=== PATIENT | female | born 1960 | race Caucasian/White ===

== ENCOUNTER 2024-04-02 14:32 | Emergency (ER) | payer BC ==
--- OUTSIDE RECORDS SUMMARY | 2024-04-02 14:35 | XMS REPORT | Continuity of Care Document ---
Author Name Unknown Address [address] [facility] [address] [place] [address] [facility] thconnect Address [address] [facility] [address] [place] [address] Care Team Providers Care Principal Software Engineer Name Role Phone Edilma Landeros Primary Care Physician [phone] Stepan Martinez Attending Clinician Unavailable Sb Lucas Attending Clinician SB MONTOYA Attending Clinician UnavailAngélica Ye MD Attending Clinician [phone] Edilma Landeros Attending Clinician Unavailelvira e Stepan Martinez Admitting Clinician Unavailable Physician, No Primary or Family Admitting Clinic bryan Unavailable Payers Payer Name Policy Type Policy Number Effective Date Expirati on Date Source Problems Condition Name Condition Details Condition Category Status Onset Date Resolution Date Last Treatment Date Treating Clinician Comments Source No known active problems No known active problems Disease [facility] Allergies, Adverse Reactions, Alerts Allergy Name Allergy Type Status Severity Reaction(s) Onset Date Inactive Date Treating Clinician Comments Source hydrocod one DA Active U RASH 2023-02 00:00: 00 [facility] Hydrocod one Allergy to substanc e Active Swelling 1992-02 00:00: 00 Other reaction( s): Unknown [facility] Hydrocod one Drug Allergy Active Swelling 1992-02 00:00: 00 Other reaction( s): Unknown [facility] HYDROCOD ONE DRUG INGREDI Active Low Dizziness 1992-02 00:00: 00 [facility] NO KNOWN ALLERGIE S Drug Class Active [facility] Social History Social Habit Start Date Stop Date Quantity Comments Source Exposure to SARS-CoV-2 (event) Not sure [facility] Tobacco use and exposure 2021-03-17 00:00:00 2021-03-17 00:00:00 Never used [facility] Alcohol intake 2021-02-03 00:00:00 2021-02-03 00:00:00 .14 /d [facility] Sex Assigned At 1960 00:00:00 1960 00:00:00 [facility] Smoking Status Start Date Stop Date Source Never smoker [facility] Medications Ordered Medication Name Filled Medication Name Start Date Stop Date Current Medication? Ordering Clinician Indication Dosage Frequency Signature (SIG) Comments Components Source cetirizine 10 mg tablet 03-17 13:07: 59 Yes 10mg Take 10 mg by mouth. [facility] methylPREDN ISolone (MEDROL, STEVEN,) 4 mg tablets 03-17 00:00: 00 Yes [id number] Take by mouth SEE-INSTRU CTIONS. follow package directions [facility] montelukast 10 mg tablet 03-04 00:00: 00 Yes 10mg Take 10 mg by mouth daily. [facility] azelastine 137 mcg (0.1 %) nasal spray 2020-02 00:00: 00 Yes USE 2 SPRAYS IN EACH NOSTRIL TWICE DAILY [facility] omeprazole 40 mg capsule 2020-02 00:00: 00 Yes TAKE 1 CAPSULE BY MOUTH EVERY DAY BEFORE BREAKFAST [facility] cholestyram ine 4 gram powder 2020-02 00:00: 00 02-08 05:59 :00 No 4g Take 4 g by mouth. [facility] hydroCHLORO thiazide 25 mg tablet 2020-02 00:00: 00 Yes [facility] cetirizine (ZyrTEC) 10 MG tablet 2020-02 08:54: 59 Yes 10mg QD Take 10 mg by mouth 1 (one) time each day. [facility] azelastine (Optivar) 0.05 % ophthalmic solution 2020-02 08:54: 39 Yes [facility] Montelukast Sodium (SINGULAIR PO) 2020-02 08:54: 39 Yes [facility] traZODone 50 mg tablet 2020-02 00:00: 00 Yes 100mg Take 100 mg by mouth. [facility] busPIRone 10 mg tablet 2020-02 00:00: 00 Yes 10mg Take 10 mg by mouth daily. [facility] omeprazole (PriLOSEC) [address] capsule 05-28 00:00: 00 Yes 1 (one) time each day at the same time. [facility] triamterene -hydrochlor othiazide (Maxzide-25 ) 37.5-25 MG tablet 09-27 00:00: 00 Yes 1 (one) time each day at the same time. [facility] Vital Signs Vital Name Observation Time Observation Value Comments S ource Systolic blood pressure 2021-03-17 19:09:00 136 mm[Hg] [facility] Diastolic blood pressure 2021-03-17 19:09:00 67 mm[Hg] [facility] Heart rate 2021-03-17 19:09:00 55 /min [facility] Body temperature 2021-03-17 19:09:00 36.89 Meghna [facility] Respiratory rate 2021-03-17 19:09:00 18 /min [facility] Body height 2021-03-17 19:09:00 166.4 cm [facility] Body weight 2021-03-17 19:09:00 110.814 kg [facility] BMI 2021-03-17 19:09:00 40.04 kg/m2 [facility] Oxygen saturation in Arterial blood by Pulse oximetry 2021-03-17 19:09:00 97 /min [facility] Systolic blood pressure 2021-02-03 15:00:00 162 mm[Hg] [facility] Diastolic blood pressure 2021-02-03 15:00:00 81 mm[Hg] [facility] Heart rate 2021-02-03 15:00:00 65 /min [facility] Body temperature 2021-02-03 15:00:00 36.61 Meghna [facility] Body height 2021-02-03 15:00:00 165.1 cm [facility] Body weight 2021-02-03 15:00:00 99.791 [facility] BMI 2021-02-03 15:00:00 36.61 kg/m2 [facility] En[facility]ters Start Date/Time End Date/Time Encounter Type Admission Type Attending [facility] Care Facility Care Department Encounter ID Source 2024-02-03 07:01:00 2024-02-04 10:46:00 Inpatient Stepan Burciaga HCAPM INTE.02 [id number] [facility] 2021-03-17 13:00:00 2021-03-17 13:20:00 Urgent Care Sb Montoya [facility] [id number] [facility] 2021-03-17 13:00:00 2021-03-17 13:00:00 Outpatient SB [facility] [id number] [facility] 2021-02-03 09:00:00 2021-02-03 09:56:33 Office Visit Angélica Sullivan [facility] 2 [id number] [facility] 2020-01-29 12:00:00 2020-01-29 12:00:00 Outpatient Edilma Vasquez [facility] [id number] 2020-01-11 12:00:00 2020-01-11 12:00:00 Outpatient Edilma Vasquez [facility] [id number] [facility] Results Test Description Test Time Test Comments Results Result Co mments Source CBC W/AUTO [id number] 03:46:00* Test Item Value Reference Range Interpretation Comme nts WHITE BLOOD CELL (test code = WBC) 6.2 K/mm3 3.5-11.0 N RED BLOOD CELL (test code = RBC) 3.97 M/mm3 4.70-6.10 L HEMOGLOBIN (test code = HGB) 12.1 G/DL 10.4-14.9 N HEMATOCRIT (test code = HCT) 36.9 % 31.5-44.1 N MEAN CELL VOLUME (test code = MCV) 92.9 Fl 84.5-98.6 N MEAN CELL HGB (test code = MCH) 30.5 pg 27.0-34.2 N MEAN CELL HGB CONCETRATION (test code = MCHC) 32.8 G/DL 31.5-34.0 N RED CELL DISTRIBUTION WIDTH (test code = RDW) 12.6 SD 11.5-14.5 N PLATELET COUNT (test code = PLT) 238 K/mm3 150-450 N MEAN PLATELET VOLUME (test c ode = MPV) 9.80 fL 7.0-10.5 N NEUTROPHIL % (test code = NT%) 58.6 % 40-76 N IMMATURE GRANULOCYTE % (test code = IG%) 0.2 % 0.0-5.0 N LYMPHOCYTE % (test code = LY%) 33.9 % 20.5-51.1 N MONOCYTE % (test code = MO%) 6.6 % 1.7-9.3 N EOSINOPHIL % (test code = EO%) 0.5 % 0.0-6.0 N BASOPHIL % (test code = BA%) 0.2 % 0.0-2.0 N NUCLEATED RBC % (test code = NRBC%) 0.0 /100WBC% 0.0-1.0 N NEUTROPHIL # (test code = NT#) 3.6 K/mm3 1.8-7.6 N IMMATURE GRANULOCYTE # (test code = IG#) 0.01 x10 3/uL 0.00-0.03 N LYMPHOCYTE # (test code = LY#) 2.1 K/mm3 0.6-3.2 N MONOCYTE # (test code = MO#) 0.4 K/mm3 0.3-1.1 N EOSINOPHIL # (test code = EO#) 0.0 K/mm3 0.0-0.4 N BASOPHIL # (test code = BA#) 0.0 K/mm3 0.0-0.1 N NUCLEATED RBC # (test code = NRBC#) 0.0 K/mm3 0.0-0.1 N [id number] 08:15:00* Test Item Value Reference Range Interpretation Comme nts MAGNESIUM (test code = MAG) 1.9 MG/DL 1.8-2.4 N COMPREHENSIVE METABOLIC [id number] 08:15:00* Test Item Value Reference Range Interpretation Comme nts SODIUM (test code = NA) 142 mmol/L 136-145 N POTASSIUM (test code = K) 4.0 mmol/L 3.4-5.0 N CHLORIDE (test code = CL) 105 mmol/L 98-107 N CARBON DIOXIDE (test code = CO2) 28 mmol/L 21-32 N ANION GAP (test code = GAP) 9 GAP calc 4-15 N GLUCOSE (test code = GLU) 84 MG/DL 70-110 N BLOOD UREA NITROGEN (test code = BUN) 14 MG/DL 7-18 N GLOMERULAR FILTRATION RATE (test code = GFR) >=60 max estimate estGFR >60 The Glomerular Filtration Rate is a calculated parameterbased on serum Creatinine, patient age and sex. GFR valuesless than 60 mL/min/1.73 square meters are indicative ofChronic Kidney Disease. Values less than 15 mL/min/1.73square meters indicate Kidney failure. The calculation forGFR is based on the CKD-EPI (2020) calculation. This formulais race indifferent and is the recommended formula for GFRby the National Kidney Foundation for Adults.The GFR will not calculate if the sex is unknown or if thepatient's age is <18 years. CREATININE (test code = CREAT) 1.0 MG/DL 0.6-1.0 N TOTAL PROTEIN (test code = PROT) 6.6 G/DL 6.4-8.2 N ALBUMIN (test code = ALB) 3.5 G/DL 3.4-5.0 N GLOBULIN (test code = GLOB) 3.1 GM/dL ALBUMIN/GLOBULIN RATIO (test code = A/G) 1.1 RATIO 1.2-2.2 L CALCIUM (test code = CA) 9.1 MG/DL 8.5-10.1 N BILIRUBIN TOTAL (test code = BILT) 0.7 MG/DL 0.0-1.0 N SGOT/AST (test code = AST) 18 Unit/L 15-37 N SGPT/ALT (test code = ALT) 22 Unit/L 30-65 L ALKALINE PHOSPHATASE TOTAL (test code = ALKP) 48 Unit/L 50-136 L LIPID PROFILE (CORONARY RISK)2024-02-03 08:15:00* Test Item Value Reference Range Interpretation Comme nts TRIGLYCERIDES (test code = TRIG) 75 MG/DL 0-150 N CHOLESTEROL (test code = CHOL) 248 MG/DL 133-200 H CHOLESTEROL/HDL RATIO (test code = CHOLHDL) 3.14 RATIO See_Comment RISK ASSOC IATED WITH CHOL/HDL RATIOS: RISK MALE FEMALE1/2 AVERAGE 3.43 3.27AVERAGE 4.97 4.442X AVERAGE 9.55 7.053X AVERAGE 23.39 11.04 NOTE THAT THE REFERENCE VALUE IS RELATED TO RISK LEVELS ASRECOMMENDED BY THE [facility]. [Automated message] The system which generated this result transmitted reference range: 0-. The reference range was not used to interpret this result as normal/abnormal. HDL CHOLESTEROL (test code = HDL) 79 MG/DL See_Comment [Automated [employer] The system which generated this result transmitted reference range: 60-. The reference range was not used to interpret this result as normal/abnormal. NON-HDL CHOLESTEROL (test code = NHDL) 169 mg/dL <130 H LIPOPROTEIN LDL (test code = LDL) 147 MG/DL 0-129 H LDL/HDL (test code = LDL/HDL) 1.86 Ratio See_Comment N [FNZ] The system which generated this result transmitted reference range: 1.48-3.22 Avg. The reference range was not used to interpret this result as normal/abnormal. PROTHROMBIN [id number] 07:48:00* Test Item Value Reference Range Interpretation Comme nts PT PATIENT (test code = PTP) 10.9 SECONDS 9.3-12.9 N INTERNATIONAL NORMAL RATIO (test code = INR) 0.99 INR Unit 0.8-1.2 N TARGET INR BY INDICATION Indication INR1. Prophylaxis of venous thrombosis 2.0 - 3.0 (orthopedic surgery), Prophylaxis of venous thrombosis (other than high-risk surgery), Treatment of Deep Vein Thrombosis/Pulmonary Embolism, Prevention of systemic embolism - Tissue heart valves, Acute Myocardial Infarction (to prevent systemic embolism), Valvular heart disease, Acute Myocardial Infarction (to prevent systemic embolism), Valvular heart disease, Atrial Fibrillation, Bileaflet mechanical valve in aortic position.2. Mechanical prosthetic valves (high risk), 2.5 - 3.5 Presence of Lupus Anticoagulant or Antiphospholipid Antibodies, Prevention of systemic embolism - Acute Myocardial Infarction (to prevent recurrent infarct). CBC W/AUTO [id number] 07:27:00* Test Item Value Reference Range Interpretation Comme nts WHITE BLOOD CELL (test code = WBC) 5.8 K/mm3 3.5-11.0 N RED BLOOD CELL (test code = RBC) 4.45 M/mm3 4.70-6.10 L HEMOGLOBIN (test code = HGB) 13.6 G/DL 10.4-14.9 N HEMATOCRIT (test code = HCT) 41.0 % 31.5-44.1 N MEAN CELL VOLUME (test code = MCV) 92.1 Fl 84.5-98.6 N MEAN CELL HGB (test code = MCH) 30.6 pg 27.0-34.2 N MEAN CELL HGB CONCETRATION (test code = MCHC) 33.2 G/DL 31.5-34.0 N RED CELL DISTRIBUTION WIDTH (test code = RDW) 12.4 SD 11.5-14.5 N PLATELET COUNT (test code = PLT) 245 K/mm3 150-450 N MEAN PLATELET VOLUME (test c ode = MPV) 9.70 fL 7.0-10.5 N NEUTROPHIL % (test code = NT%) 60.0 % 40-76 N IMMATURE GRANULOCYTE % (test code = IG%) 0.2 % 0.0-5.0 N LYMPHOCYTE % (test code = LY%) 32.9 % 20.5-51.1 N MONOCYTE % (test code = MO%) 5.9 % 1.7-9.3 N EOSINOPHIL % (test code = EO%) 0.7 % 0.0-6.0 N BASOPHIL % (test code = BA%) 0.3 % 0.0-2.0 N NUCLEATED RBC % (test code = NRBC%) 0.0 /100WBC% 0.0-1.0 N NEUTROPHIL # (test code = NT#) 3.5 K/mm3 1.8-7.6 N IMMATURE GRANULOCYTE # (test code = IG#) 0.01 x10 3/uL 0.00-0.03 N LYMPHOCYTE # (test code = LY#) 1.9 K/mm3 0.6-3.2 N MONOCYTE # (test code = MO#) 0.3 K/mm3 0.3-1.1 N EOSINOPHIL # (test code = EO#) 0.0 K/mm3 0.0-0.4 N BASOPHIL # (test code = BA#) 0.0 K/mm3 0.0-0.1 N NUCLEATED RBC # (test code = NRBC#) 0.0 K/mm3 0.0-0.1 N
--- NOTE | 2024-04-02 15:41 | RAD REPORT ---
EXAM: Chest Single View HISTORY: Dyspnea;Cough COMPARISON: None. FINDINGS: LUNGS/PLEURA: Minimal opacities present in the lung bases. No loretta consolidation or edema. MEDIASTINUM: The mediastinal silhouette is within normal limits. CARDIAC: The cardiac silhouette is within normal limits. UPPER ABDOMEN: No significant abnormality. BONES: No acute abnormality. LINES/TUBES/OTHER: Pacemaker present. IMPRESSION: Minimal opacities in the lung bases could reflect some very mild early pneumonia or pneumonitis. No f rank consolidative airspace disease or edema.
[2024-04-02 16:18] LABS: Absolute Lymphocytes (CBC) 0.8 K/uL (0.7-4.9); Absolute Monocytes 0.5 K/uL (0.1-1.3); Absolute Neutrophil 4.5 K/uL (1.8-8.0); Basophils % 0.4 % (0-1.3); Hematocrit 37.8 % (36.0-45.0); Hemoglobin 13.2 g/dL (12.0-15.0); Lymphocytes % 13.2 % (15.3-44.8); MCH 31.5 pg (27.0-35.0); MCHC 34.8 g/dL (32.0-36.0); MCV 90.6 fL (80-100); MPV 7.6 fL (7.6-11.3); Monocytes % 9.3 % (3.3-12.3); Neutrophils % 77.1 % (41.7-73.7); Nucleated Red Blood Cells % 0.1 % (0-0); Platelets 247 thou/uL (152-406); RBC Red Blood Cell Count 4.17 M/uL (3.86-4.86); Red Cell Distribution Width 13.5 % (12.1-15.2)
[2024-04-02 16:23] LABS: PT Prothrombin Time 12.1 SECONDS (9.4-12.5); PTT, Activated Partial Thromb 33.3 SECONDS (24.3-36.9); Protime INR 1.15
[2024-04-02 16:25] LABS: ALT/SGPT 24 U/L (13-56); AST/SGOT 23 U/L (15-37); Albumin 3.2 g/dL (3.4-5.0); Alkaline Phosphatase 51 U/L (45-117); Anion Gap 11.9 mEq/L (5.0-15.0); BUN Blood Urea Nitrogen 21 mg/dL (7-18); Bicarbonate 23 mEq/L (21-32); Bilirubin Total 0.4 mg/dL (0.2-1.0); Globulin 3.3 g/dL (2.3-3.5); Glomerular Filtration Rate 38 ml/min (=/>90); Glucose Level 102 mg/dL (74-106); Magnesium 1.8 mg/dL (1.6-2.4); Potassium 3.9 mEq/L (3.5-5.1); Protein, Total 6.5 g/dL (6.4-8.2); Sodium Level 133 mEq/L (136-145)
[2024-04-02 16:26] LABS: Bilirubin Direct < 0.2 mg/dL (0-0.2); Bilirubin Indirect, Calculated 0.2 mg/dL (0.2-0.8)
[2024-04-02 16:33] LABS: SARS-CoV-2 Antigen CONTROL BLUE LINE VIS/BG OK; SARS-CoV-2 Antigen Rapid Res Negative (Negative)
[2024-04-02] MEDS ORDERED: NA CHLORIDE 0.9% 1,000 ML ONE (16:57)
--- NOTE | 2024-04-02 17:00 | RAD REPORT ---
EXAMINATION: CTA CHEST PE CLINICAL INDICATION: Female, 64 years old. Blunt chest trauma;Dyspnea TECHNIQUE: This examination was performed according to an angiographic protocol with 3D post-processi ng. This involves 3D reconstructions, MIPs, volume rendered images and/or shaded surface rendering. One or more of the following dose reduction techniques were used: Automated exposure control, adjustm ent of the mA and/or kV according to patient size, and/or iterative reconstruction. Unless otherwise specified, incidental findings do not require dedicated imaging follow-up. [id number]. COMPARISON: No priors. FINDINGS: LOWER NECK: Visualized thyroid gland and soft tissues are normal. Left upper chest wall pacemaker. LUNGS AND AIRWAYS: Airways are clear. No evidence of airspace or interstitial process.No suspicious a nd/or stable pulmonary nodules. PLEURA: No pleural effusion. No pneumothorax. Hemidiaphragms are normally positioned. MEDIASTINUM AND LYMPH NODES: No mediastinal mass or fluid collection. Normal size mediastinal, hilar, and axillary lymph nodes. THORACIC AORTA: No thoracic aortic aneurysm. PULMONARY ARTERIES: Caliber is within normal limits. No pulmonary emboli identified. HEART: Normal heart size. No coronary calcifications.No significant pericardial effusion. OSSEOUS STRUCTURES AND CHEST WALL: No fracture or suspicious osseous lesions. UPPER ABDOMEN: No acute abnormalities.Cholecystectomy IMPRESSION: No evidence of pulmonary emboli to the subsegmental level. Lungs are clear.
--- NOTE | 2024-04-02 17:04 | RAD REPORT ---
EXAMINATION: CT ABDOMEN WITH CONTRAST CLINICAL INDICATION: Female, 64 years old.lower posterior rib pain TECHNIQUE: CT abdomen was performed, after the administration of IV contrast, as per department prot ocol. Axial, sagittal and coronal reconstructions were obtained. One or more of the following dose reduction techniques were used: Automated exposure control, adjustment of the mA and/or kV according to patient size, and/or iterative reconstruction. Unless otherwise specified, incidental findings do not require dedicated imaging follow-up. [id number]. COMPARISON: No prior exam. FINDINGS: LOWER CHEST: No acute process identified.No significant pericardial effusion. Pacemaker leads UPPER GI: No significant abnormality. LIVER: Hepatic steatosis, but otherwise unremarkable. GALLBLADDER/BILE DUCTS: Cholecystectomy. Mild extra-hepatic biliary ductal dilatation is likely relat ed to the post-cholecystectomy state. Consider correlating with LFT's.? PANCREAS: No mass, ductal dilation, or tremayne-pancreatic fluid. SPLEEN: Unremarkable. ADRENALS: No adrenal masses. KIDNEYS AND URETERS: No hydronephrosis.No suspicious renal mass. ABDOMINAL AORTA AND OTHER VESSELS: Mild atherosclerotic changes. PERITONEUM: No abnormal free fluid. No free air. LYMPH NODES: No pathologic lymphadenopathy. ABDOMINAL WALL: Unremarkable SMALL BOWEL/COLON: Small bowel has normal course and caliber. No colonic wall thickening or pericolon ic inflammatory changes. MUSCULOSKELETAL: Multilevel degenerative changes in the spine. No acute fracture. ADDITIONAL FINDINGS: None. IMPRESSION: No acute or significant abnormalities seen in the abdomen or pelvis. No evidence of significant acute trauma.
[2024-04-02] MEDS ORDERED: FENTANYL CITR 100 MCG/2 ML ONE (17:28)
[2024-04-02] MEDS ORDERED: ONDANSETRON 4 MG/2 ML VIAL ONE (17:28)
--- NOTE | 2024-04-02 17:37 | EDPHYS ---
Physician Documentation [facility] Name: Santa Deluna Age: 64 yrs Sex: Female : 1960 Arrival Date: 04/02/2024 Time: 14:32 Bed 18 Private MD: ED Physician Reyes Duran HPI: 04/02 17:22 This 64 yrs old Female presents to ER via Wheelchair with complaints of Fall Injury, kb Breathing Difficulty. 17:22 Patient is a 64-year-old female who developed cough, congestion and chills 3 days ago. kb States this morning she had a coughing spell that caused her to get dizzy and passed out. States she passed out for 2 minutes. Patient had made an appointment with PCP for today so she went to that and was told to come to the ER for evaluation. Patient states she hit her right posterior chest on the suitcase that she was unloading causing pain to the ribs. States she got back from a trip on Monday evening that involved a 6-hour car ride.. Historical: - Allergies: 15:08 Hydrocodone-Acetaminophen; ko1 - Home Meds: 15:08 Lisinopril Oral [Active]; ko1 - PMHx: 15:08 Hypertensive disorder; ko1 - PSHx: 15:08 Cholecystectomy; Total abdominal hysterectomy; pacemaker; Tonsillectomy; ko1 - Immunization history:: Adult Immunizations unknown. - Infectious Disease History:: Denies. - Social history:: Smoking status: Patient denies any tobacco usage or history of. ROS: 17:06 Constitutional: As per HPI kb Exam: 17:20 Constitutional: This is a well developed, well nourished patient who is awake, alert, kb and in no acute distress. Head/Face: Normocephalic, atraumatic. ENT: Moist Mucous membranes Cardiovascular: Regular rate Respiratory: Respirations even and unlabored. No increased work of breathing. Talking in full sentences Abdomen/GI: Soft, non-tender. No distention Skin: Warm, dry with normal turgor. Normal color. MS/ Extremity: Pulses equal, no cyanosis. Neurovascular intact. Full, normal range of motion. Neuro: Awake and alert, GCS 15, oriented to person, place, time, and situation. 17:20 Chest/axilla: Inspection: abrasion, that is mild, that is moderate, of the anterior aspect of right lateral abdomen Palpation: tenderness, that is moderate, of the right lateral posterior chest, 17:20 ECG was reviewed by the Attending Physician. Vital Signs: 15:05 BP 104 / 61; Pulse 73; Resp 18; Temp 97.5; Pulse Ox 100% on R/A; ko1 17:00 BP 123 / 60; Pulse 52; Resp 18; Pulse Ox 100% ; me1 18:00 BP 122 / 65; Pulse 56; Resp 16; Pulse Ox 95% ; me1 18:44 BP 117 / 53; Pulse 56; Resp 17; Temp 98.3; Pulse Ox 97% ; me1 MDM: 14:34 Medical Screening Exam initiated kb 17:21 Differential diagnosis: contusion, fracture, flu, covid, pneumonia, pe. Data reviewed: kb vital signs, nurses notes. Historians other than the Patient: Daughter/Son: daughter. Counseling: I had a detailed discussion with the patient and/or guardian regarding the historical points, exam findings, and any diagnostic results supporting the discharge/admit diagnosis, lab results, radiology results, the need for outpatient follow up, a family practitioner, to return to the emergency department if symptoms worsen or persist or if there are any questions or concerns that arise at home. 04/02 15:11 Order name: Basic Metabolic Panel; Complete Time: 16:29 kb 04/02 15:11 Order name: CBC with Diff; Complete Time: 16:29 kb 04/02 15:11 Order name: Hepatic Function; Complete Time: 16:29 kb 04/02 15:11 Order name: Magnesium; Complete Time: 16:29 kb 04/02 15:11 Order name: Protime (+inr); Complete Time: 16:29 kb 04/02 15:11 Order name: Ptt, Activated; Complete Time: 16:29 kb 04/02 15:11 Order name: Troponin High Sensitivity; Complete Time: 16:29 kb 04/02 15:11 Order name: Flu; Complete Time: 16:37 kb 04/02 15:11 Order name: SARS-COV-2 Antigen Rapid; Complete Time: 16:37 kb 04/02 15:11 Order name: Chest Single View XRAY; Complete Time: 15:43 kb 04/02 15:11 Order name: CT Chest For PE Angio; Complete Time: 17:03 kb 04/02 15:11 Order name: CT Abdomen - IV Contrast Only; Complete Time: 17:04 kb 04/02 15:11 Order name: Cardiac monitoring; Complete Time: 17:14 kb 04/02 15:11 Order name: EKG - Nurse/Tech; Complete Time: 17:14 kb 04/02 15:11 Order name: IV Saline Lock; Complete Time: 16:11 kb 04/02 15:11 Order name: Labs collected and sent; Complete Time: 16:11 kb 04/02 15:11 Order name: NPO; Complete Time: 16:43 kb 04/02 15:11 Order name: O2 Per Protocol; Complete Time: 16:28 kb 04/02 15:11 Order name: O2 Sat Monitoring; Complete Time: 16:28 kb EC:20 Rate is 55 beats/min. Rhythm is regular. QRS [place] is Normal. [place] interval is normal at kb 182 msec. QRS interval is normal at 68 msec. QT interval is normal at 451 msec. Administered Medications: 17:17 Drug: NS 0.9% IV 1000 ml IV at 1000 ml once; to be given as a bolus over 60 minutes me1 Route: IV; Rate: 1000 ml; Site: left antecubital; 18:45 Follow up: Response: No adverse reaction; IV Status: Completed infusion; IV Intake: me1 1000ml 17:32 Drug: fentaNYL (PF) IVP 25 mcg IVP once Route: IVP; Site: left antecubital; me1 18:45 Follow up: Response: No adverse reaction; Pain is decreased me1 17:33 Drug: Ondansetron IVP 4 mg IVP once; over 2 minutes Route: IVP; Site: left antecubital; me1 18:45 Follow up: Response: No adverse reaction; Nausea is decreased me1 Disposition Summary: 04/02/24 17:37 Discharge Ordered Notes: Location: Home kb Condition: Stable kb Diagnosis - Influenza due to identified novel influenza A virus kb - Contusion of right back wall of thorax kb - Abrasion of right back wall of thorax kb Followup: kb - With: Emergency Department - When: As needed - Reason: Worsening of condition Followup: kb - With: Private Physician - When: 2 - 3 days - Reason: Recheck today's complaints, Continuance of care, Re-evaluation by your physician Discharge Instructions: - Discharge Summary Sheet kb - Chest Contusion, Adult, [id number] kb - Influenza, Adult, [id number] kb Forms: - Medication Reconciliation Form kb - Antibiotic Education kb - Prescription Opioid Use kb - Patient Portal Instructions kb - Leadership Thank You Letter kb Prescriptions: - Diclofenac Sodium 75 mg Oral tablet, delayed release (enteric coated) - take 1 tablet ORAL route 2 times per day As needed; 30 tablet; Refills: 0, kb Product Selection Permitted - orphenadrine citrate 100 mg Oral Tablet Sustained Release - take 1 tablet ORAL route 2 times per day As needed; 20 tablet; Refills: 0, kb Product Selection Permitted Signatures: Dispatcher [employer] EDMS Shania Trinh, HOOKER LASTER-C HOOKER LASTER-Estefani Lora, RN RN ko1 Goldie Andrade, RN RN me1 Corrections: (The following items were deleted from the chart) 15:12 15:12 BASIC METABOLIC PANEL+C.LAB.BRZ ordered. EDMS EDMS 15:12 15:12 CBC+H.LAB.BRZ ordered. EDMS EDMS 15:12 15:12 HEPATIC FUNCTION+C.LAB.BRZ ordered. EDMS EDMS 15:12 15:12 MAGNESIUM+C.LAB.BRZ ordered. EDMS EDMS 15:12 15:12 PROTIME (+INR)+COAG.LAB.BRZ ordered. EDMS EDMS 15:12 15:12 PTT, ACTIVATED+COAG.LAB.BRZ ordered. EDMS EDMS 15:12 15:12 Troponin High Sensitivity+C.LAB.BRZ ordered. EDMS EDMS 15:12 15:12 Influenza Screen (A \T\ B)+BA.LAB.BRZ ordered. EDMS EDMS 15:12 15:12 SARS-COV-2 Antigen Rapid+I.LAB.BRZ ordered. EDMS EDMS 15:12 15:12 Chest For PE Angio+CT.RAD.BRZ ordered. EDMS EDMS 15:12 15:12 Abdomen W/ Con+CT.RAD.BRZ ordered. EDMS EDMS
--- NOTE | 2024-04-02 17:37 | ER ---
Nurse's Notes [facility] Name: Santa Deluna Age: 64 yrs Sex: Female : 1960 Arrival Date: 04/02/2024 Time: 14:32 Bed 18 Private MD: Diagnosis: Influenza due to identified novel influenza A virus;Contusion of right back wall of thorax;Abrasion of right back wall of thorax Presentation: 04/02 15:05 Chief complaint: Patient states: fell this morning after coughing, got dizzy and passed ko1 out, complains of pain in right side/ribs. Has been having coughing/congestion for a few days. Went to pcp today and was given toradol 60mg IM. Coronavirus screen: At this time, the client does not indicate any symptoms associated with coronavirus-19. Ebola Screen: No symptoms or risks identified at this time. Initial Sepsis Screen: Does the patient meet any 2 criteria? No. Patient's initial sepsis screen is negative. Does the patient have a suspected source of infection? No. Patient's initial sepsis screen is negative. Risk Assessment: Do you want to hurt yourself or someone else? Patient reports no desire to harm self or others. Onset of symptoms was April 02, 2024. Care prior to arrival: Medication(s) given: Toradol 60 mg IM at PCP office. 15:05 Method Of Arrival: Wheelchair ko1 15:05 Acuity: ANDRE 3 ko1 Triage Assessment: 15:08 General: Appears distressed, Behavior is anxious. Pain: Complains of pain in anterior ko1 aspect of right lateral abdomen. Historical: - Allergies: 15:08 Hydrocodone-Acetaminophen; ko1 - Home Meds: 15:08 Lisinopril Oral [Active]; ko1 - PMHx: 15:08 Hypertensive disorder; ko1 - PSHx: 15:08 Cholecystectomy; Total abdominal hysterectomy; pacemaker; Tonsillectomy; ko1 - Immunization history:: Adult Immunizations unknown. - Infectious Disease History:: Denies. - Social history:: Smoking status: Patient denies any tobacco usage or history of. Screenin:51 [facility] ED Fall Risk Assessment (Adult) History of falling in the last 3 months, me1 including since admission No falls in past 3 months (0 pts) Confusion or Disorientation No (0 pts) Intoxicated or Sedated No (0 pts) Impaired Gait No (0 pts) Mobility Assist Device Used No (0 pt) Altered Elimination No (0 pt) Score/Fall Risk Level 0 - 2 = Low Risk Maintained a safe environment, Provided non-skid footwear, Hourly rounding (assess needs \T\ fall precautionary measures) done. Abuse screen: Denies threats or abuse. Nutritional screening: No deficits noted. Tuberculosis screening: No symptoms or risk factors identified. Assessment: 16:51 General: Appears uncomfortable, ill, well groomed, well developed, well nourished, me1 Behavior is calm, cooperative, appropriate for age, Reports fell this morning after coughing, got dizzy and passed out, complains of pain in right side/ribs. Has been having coughing/congestion for a few days. Pain: Complains of pain in anterior aspect of right lateral abdomen Pain does not radiate. Pain currently is 10 out of 10 on a pain scale. Quality of pain is described as aching, Pain began suddenly, Is continuous. Neuro: Level of Consciousness is awake, alert, obeys commands, Oriented to person, place, time, situation, Appropriate for age. Neuro: Reports dizziness, with coughing spells. Cardiovascular: Patient's skin is warm and dry. Respiratory: Reports shortness of breath cough that is pain with cough Airway is patent Trachea midline Respiratory effort is even, unlabored, Respiratory pattern is regular, symmetrical. GI: No signs and/or symptoms were reported involving the gastrointestinal system. : No signs and/or symptoms were reported regarding the genitourinary system. EENT: No signs and/or symptoms were reported regarding the EENT system. Derm: Skin is intact, is healthy with good turgor, Skin is pink, warm \T\ dry. Musculoskeletal: No signs and/or symptoms reported regarding the musculoskeletal system. Vital Signs: 15:05 BP 104 / 61; Pulse 73; Resp 18; Temp 97.5; Pulse Ox 100% on R/A; ko1 17:00 BP 123 / 60; Pulse 52; Resp 18; Pulse Ox 100% ; me1 18:00 BP 122 / 65; Pulse 56; Resp 16; Pulse Ox 95% ; me1 18:44 BP 117 / 53; Pulse 56; Resp 17; Temp 98.3; Pulse Ox 97% ; me1 ED Course: 14:33 Patient arrived in ED. mr 14:34 [facility] Trin[facility]-C [facility] kb 14:34 Reyes Duran MD is Attending Physician. kb 15:08 Triage completed. ko1 15:08 Arm band placed on right wrist. Patient placed in waiting room. ko1 15:31 Chest Single View XRAY In Process Unspecified. EDMS 16:11 SARS-COV-2 Antigen Rapid Sent. bc6 16:11 Flu Sent. bc6 16:11 Basic Metabolic Panel Sent. bc6 16:11 CBC with Diff Sent. bc6 16:11 Hepatic Function Sent. bc6 16:11 Magnesium Sent. bc6 16:11 Protime (+inr) Sent. bc6 16:11 Ptt, Activated Sent. bc6 16:11 Troponin High Sensitivity Sent. bc6 16:11 Initial lab(s) drawn, by me, sent to lab. COVID swab sent to lab. Flu and/or RSV swab bc6 sent to lab. Inserted saline lock: 20 gauge in left antecubital area, using aseptic technique. Blood collected. Flushed with 10 mL NS. 16:16 Arm band placed on Patient placed in an exam room, on a stretcher. ph 16:26 Goldie Andrade, RN is Primary Nurse. me1 16:51 CT Chest For PE Angio In Process Unspecified. EDMS 16:51 CT Abdomen - IV Contrast Only In Process Unspecified. EDMS 16:51 Patient has correct armband on for positive identification. Bed in low position. Call me1 light in reach. Side rails up X2. Provided Education on: POC. Verbalized understanding.. Client placed on continuous cardiac and pulse oximetry monitoring. NIBP monitoring applied. print journalist on. Pulse ox on. NIBP on. 16:51 No provider procedures requiring assistance completed. me1 17:14 EKG done, by ED staff, reviewed by Shania ORTEGA. me1 18:45 IV discontinued, intact, bleeding controlled, No redness/swelling at site. Pressure me1 dressing applied. Administered Medications: 17:17 Drug: NS 0.9% IV 1000 ml IV at 1000 ml once; to be given as a bolus over 60 minutes me1 Route: IV; Rate: 1000 ml; Site: left antecubital; 18:45 Follow up: Response: No adverse reaction; IV Status: Completed infusion; IV Intake: me1 1000ml 17:32 Drug: fentaNYL (PF) IVP 25 mcg IVP once Route: IVP; Site: left antecubital; me1 18:45 Follow up: Response: No adverse reaction; Pain is decreased me1 17:33 Drug: Ondansetron IVP 4 mg IVP once; over 2 minutes Route: IVP; Site: left antecubital; me1 18:45 Follow up: Response: No adverse reaction; Nausea is decreased me1 Medication: 16:51 VIS not applicable for this client. me1 Intake: 18:45 IV: 1000ml; Total: 1000ml. me1 Outcome: 17:37 Discharge ordered by . max 18:45 Discharged to home via wheelchair, with family, me1 18:45 Condition: stable 18:45 Discharge instructions given to patient, family, Instructed on discharge instructions, follow up and referral plans. medication usage, Demonstrated understanding of instructions, follow-up care, medications, Prescriptions given X 2, 18:46 Patient left the ED. me1 Signatures: Dispatcher [employer] EDMS Shania Trinh, BUSINESS DEVELOPMENT SALES EXECUTIVE-C BUSINESS DEVELOPMENT SALES EXECUTIVE-Ckb Anita Paz, Reg Reg mr Hilda Larose, RN RN Estefani Vieira RN RN ko1 Rachelle Coe 6 Goldie Andrade, ARAM RN me1 Corrections: (The following items were deleted from the chart) 16:51 15:05 Chief complaint: Patient states: fell this morning after coughing, got dizzy and me1 passed out, complains of pain in right side/ribs. Has been having coughing/congestion for a few days. Went to pcp today and was given toradol 60mg IM ko1
[2024-04-02 19:35] VITALS: BP 117/53; TEMP 98.3; O2SAT 97
--- NOTE | 2024-04-03 11:29 | EKG ---
Test Date: 2024-04-02 Test Time: 17:08:31 Sql Ssrs Ssis Developer: MEASUREMENT RESULTS: Intervals: Rate: 55 WY: 182 QRSD: 68 QT: 472 QTc: 451 [place]: P: 82 WY: 182 QRS: 47 T: 71 INTERPRETIVE STATEMENTS: Atrial-paced rhythm Septal infarct, age undetermined Abnormal ECG No previous ECG available for comparison Electronically Signed On 04-03-24 11:27:47 RE RECORDING MIXER by Jacinto Bernal
== END 2024-04-02 18:46 | disposition home or self-care (01) ==
LOC: ER 14:32
DX: J10.1 Influenza due to other identified influenza virus with other respiratory manifestations (principal); S20.411A Abrasion of right back wall of thorax, initial encounter; S20.221A Contusion of right back wall of thorax, initial encounter; Z11.52 Encounter for screening for COVID-19; Z95.0 Presence of cardiac pacemaker
CPT/HCPCS: 85025; 80048; 36415; 83735; 85610; 80076; 85730; 84484; 87804 ×2; 74160; 71275; 71045; 87811; Q9967; J3010; J2405; J7030; 93005